=== PATIENT | male | born 1995 | race Caucasian/White ===

== ENCOUNTER 2019-03-19 08:58 | Inpatient (IN) | payer OTHER ==
[~2019-03-19] VITALS: Ht 182.9 cm; Wt 88.5 kg
--- NOTE | 2019-03-19 09:15 | NUR ---
Patient ANGELA from a hotel, overdose on heroin, on room air, breathing evenly and unlabored. Tachy on the monitor 120HR, connected to the monitor and pulse ox. Kept comfortable, will continue to monitor accordingly.
[2019-03-19 09:20] LABS: BASOPHILS # (AUTO) 0.1 /CMM (0.0-0.2); BASOPHILS % (AUTO) 0.2 % (0.0-2.0); HEMATOCRIT 44 % (39-51); HEMOGLOBIN 14.6 g/dL (13.5-17.5); LYMPHOCYTES # (AUTO) 1.7 /CMM (0.8-4.8); LYMPHOCYTES % (AUTO) 6.3 % (20.0-44.0); MEAN CORPUSCULAR HGB CONC 33 g/dl (31.0-36.0); MEAN CORPUSCULAR VOLUME 94 fL (80-96); MONOCYTES # (AUTO) 2.8 /CMM (0.1-1.30); MONOCYTES % (AUTO) 10.6 % (2.0-12.0); NEUTROPHILS # (AUTO) 21.7 /CMM (1.8-8.9); NEUTROPHILS % (AUTO) 82.9 % (43.0-81.0); PLATELET COUNT (AUTO) 257 /CMM (150-450); RED BLOOD CELL COUNT(AUTO) 4.67 MIL/uL (4.5-6.0); WHITE BLOOD COUNT (AUTO) 26.2 K/uL (4.3-11.0)
--- NOTE | 2019-03-19 09:22 | NUR ---
urine collected and sent to lab.
[2019-03-19 09:24] LABS: BILIRUBIN,URINE Negative (NEGATIVE); BLOOD, URINE Large Ery/uL (NEGATIVE); COLOR,URINE Yellow (YELLOW); KETONES,URINE Negative (NEGATIVE); LEUKOCYTE ESTERASE ,URINE Negative (NEGATIVE); NITRITE, URINE Negative (NEGATIVE); PH,URINE 6.5 (5.0-8.0); PROTEIN,URINE Trace mg/dl (NEGATIVE); UGLUCOSE Negative (NEGATIVE); UROBILINOGEN,URINE 0.2 EU/dL (0.2)
[2019-03-19 09:25] LABS: APPEARANCE,URINE Hazy (CLEAR)
--- NOTE | 2019-03-19 09:25 | NUR ---
sitter at bedside for constant monitoring.
[2019-03-19 09:26] LABS: CALCIUM, SERUM 8.6 mg/dL (8.5-10.1); CARBON DIOXIDE 22 mmol/L (21-32); CHLORIDE 102 mmol/L (98-107); CREATININE 2.6 mg/dL (0.6-1.3); GLUCOSE 91 mg/dL (74-106); POTASSIUM 5.1 mmol/L (3.5-5.1); SODIUM SERUM 138 mmol/L (136-145); UREA NITROGEN, BLOOD 22 mg/dL (7-18)
[2019-03-19 09:32] LABS: BACTERIA,URINE Rare /HPF (None Seen); RBC,URINE 50-80 /HPF (0-2); SQUAMOUS EPITHELIAL CELL,UR Few /HPF (None Seen); WBC,URINE 0-3 /HPF (0-3)
[2019-03-19 09:32] LABS: ACETAMINOPHEN 0 ug/ml (10-30); ALANINE AMINOTRANSFERASE 364 U/L (12-78); ALBUMIN 4.4 g/dL (3.4-5.0); ALCOHOL, BLOOD < 3 mg/dL (0-0); ALKALINE PHOSPHATASE 58 U/L (46-116); ASPARTATE AMINOTRANSFERASE 339 U/L (15-37); BILIRUBIN,DIRECT 0.1 mg/dL (0.0-0.2); BILIRUBIN,TOTAL 0.1 mg/dL (0.2-1.0); SALICYLATE 2.8 mg/dL (2.8-20.0); TOTAL PROTEIN, SERUM 7.4 g/dL (6.4-8.2)
--- NOTE | 2019-03-19 09:42 | NUR ---
CHIN WILHELM (FATHER) [phone]
[2019-03-19] MEDS ORDERED: IV NS 0.9% 1,000 ML IV ONE (10:00)
--- NOTE | 2019-03-19 10:12 | NUR ---
WHEELED OUT VIA RNEY FOR CT SCAN
--- NOTE | 2019-03-19 10:49 | NUR ---
called POISON CONTROL : case presented to [facility] (poison control) adviced to start Mucomyst drip repeat liver enzymes at 12 pm- notified OLIVIA Chan
[2019-03-19] MEDS ORDERED: IV NS 0.9% 1,000 ML BAG IV ONE (11:00)
[2019-03-19] MEDS ORDERED: IV NS 0.9% 1,000 ML IV PRN (11:17)
--- NOTE | 2019-03-19 11:21 | NUR ---
Report given to Cira ESCALANTE for luis daniel.
[2019-03-19] MEDS ORDERED: ONDANSETRON HCL/PF 4 MG/2 ML VIAL IVP PRN (11:30)
[2019-03-19] MEDS ORDERED: CEFTRIAXONE 1GM BAG (ER ONLY) 1 GM/50 ML PIGGYBACK IV ONE (11:30)
[2019-03-19] MEDS ORDERED: Z GUARD REMEDY 2 OZ OINT TP PRN (11:30)
[2019-03-19] MEDS ORDERED: MAG HYDROX/AL HYDROX/SIMETH 30 ML UDC PO PRN (11:30)
[2019-03-19] MEDS ORDERED: MAGNESIUM HYDROXIDE 30 ML UDC PO PRN (11:30)
[2019-03-19] MEDS ORDERED: CEFTRIAXONE 1GM BAG (ER ONLY) 50 ML IV ONE (11:31)
[2019-03-19] MEDS ORDERED: D5W IV ONE ×3 (12:00→18:00)
[2019-03-19] MEDS ORDERED: ACETYLCYSTEINE IV ONE ×3 (12:00→18:00)
[2019-03-19 12:12] LABS: ALBUMIN 3.9 g/dL (3.4-5.0); BILIRUBIN,DIRECT 0.1 mg/dL (0.0-0.2); BILIRUBIN,TOTAL 0.3 mg/dL (0.2-1.0); TOTAL PROTEIN, SERUM 6.8 g/dL (6.4-8.2)
--- NOTE | 2019-03-19 12:13 | NUR ---
wheeled patient via gurney accompanied by EMT and RN in no apparent distress. Lolita RN and Cira RN at bedside to assume care.
--- NOTE | 2019-03-19 12:15 | NUR ---
MS RN OPENING NOTES RECEIVED RESIDENT VIA [place] ACCOMPANIED BY 2 NURSES FROM EMERGENCY DEPARTMENT, ASLEEP BUT AROUSABLE AND OPENS HIS EYES WHEN CALLING HIS NAME, ABLE TO FOLLOW SIMPLE INSTRUCTIONS. AFEBRILE WITH NO S/S OF DISTRESS OBSERVED. LEFT HAND IV LINE G20 INTACT AND INFUSING WELL WITH NO BLEEDING AND S/S OF INFILTRATION/INFECTION SEEN. BREATHING REGULAR AND UNLABORED WITH CLEAR BREATH SOUNDS HEARD ON BOTH LUNG DAMON. ACTIVE BOWEL SOUNDS NOTED ON ALL QUADRANTS WITH SOFT ABDOMEN AND BLADDER. ABLE TO MOVE ALL EXTREMITIES WITH NO S/S OF PAIN/DISCOMFORT NOTED. ASSESSED VITAL SIGNS AND NOTED LOW BLOOD PRESSURE, IV BOLUS 500CC OF NORMAL SALINE GIVEN ORDERED. BODY ASSESSMENT DONE, SEEN WITH CHIN REDNESS WITH MINIMAL SWELLING, RIGHT ELBOW ABRASION AND LEFT KNEE REDNESS, PHOTO TAKEN AND FILED ON CHART. KEPT CLEAN AND DRY, REPOSITIONED EVERY 2HRS AND NEEDED. BED LOW AND LOCKED. CONTINUOUSLY MONITORED.
--- NOTE | 2019-03-19 12:20 | NUR ---
MS RN NOTES PATIENT NOTED WITH BP OF 91/49 PULSE OF 97 RESPIRATION OF 18, O2 SATURATION 95%. PATIENT OPENS EYES WHEN NAME IS CALLED. NO SIGNS OR DISTRESS NOTED. FLUIDS STARTED NS AT 125ML/HR. PUJA DAVID PAGED WAITING FOR CALL BACK. WILL CONTINUE TO MONITOR. PATIENTS FATHER AT BEDSIDE.
--- NOTE | 2019-03-19 12:25 | NUR ---
MS RN NOTES JOE DAVID RETURNED CALL WITH ORDERS FOR BOLUS OF NS WIDE OPEN. NOTED AND CARRIED OUT.
[2019-03-19 12:30] VITALS: BP 104/58
--- NOTE | 2019-03-19 12:45 | NUR ---
MS RN NOTES BP CHECKED AFTER BOLUS: 104/58 HEART RATE 97 O2 SATURATION AT 95% PATIENT RESTING IN BED. OPENS EYES WHEN NAME CALLED. WILL CONTINUE TO MONITOR.
[2019-03-19] MEDS ORDERED: IV NS 0.9% 500 ML BAG IV ONE (13:00)
[2019-03-19] MEDS: PIPERACILLIN /TAZOBACTAM 2.25 G in IV D5W 50 ML IV SCH ×2 (13:32→17:58)
--- NOTE | 2019-03-19 14:00 | NUR ---
MS RN NOTES NOTES PATIENTS PROCALCITONIN LEVEL 4.61 PUJA DAVID NOTIFIED ORDERS TO CONTINUE CURRENT TREATMENT WITH IV HYDRATION AND IV ATB. WILL CONTINUE TO MONITOR.
[2019-03-19] MEDS: IV NS 0.9% 1,000 ML IV PRN ×2 (15:04→20:24)
[2019-03-19] MEDS: FAMOTIDINE/PF INJ 20 MG/2 ML VIAL IV SCH (17:24)
--- NOTE | 2019-03-19 18:50 | NUR ---
MS RN CLOSING NOTES RESIDENT IN BED ALERT, AROUSABLE BY NAME AND ABLE TO FOLLOW SIMPLE INSTRUCTIONS, AFEBRILE WITH NO S/S OF DISTRESS OBSERVED. IV LINES ON LEFT HAND AND LEFT ANTECUBITAL BOTH G20 PATENT AND INTACT, INFUSING WELL WITH NO BLEEDING AND S/S OF INFILTRATION/INFECTION NOTED. NO S/S OF PAIN/DISCOMFORT SEEN. MAINTAINED ON NOTHING BY MOUTH, IV MEDICATIONS GIVEN ORDERED. KEPT CLEAN AND DRY, ABLE TO ASSIST WITH REPOSITIONING EVERY 2HRS AND NEEDED. WILL ENDORSE TO NOC SHIFT FOR CONTINUITY OF CARE.
--- NOTE | 2019-03-19 19:27 | NUR ---
RN MS OPENING NOTES RECEIVED PT IN BED SLEEPING, AROUSED TO NAME CALL, OPENS EYES, NODS AND GOES BACK TO SLEEP. BREATHING EVEN AND UNLABORED ON ROOM AIR. IN NO APPARENT PAIN OR DISCOMFORT AT THIS TIME, IV ACCESS ON THE L HAND G20 AND LAC G20 WITH NS @150ML/HR. BED IN LOWEST LOCKED POSITION, CALL LIGHT WITHIN REACH AT ALL TIMES. WILL CONTINUE TO MONITOR FREQUENTLY.
[2019-03-19 20:00] VITALS: BP 105/70
[2019-03-20] MEDS: PIPERACILLIN /TAZOBACTAM 2.25 G in IV D5W 50 ML IV SCH ×5 (00:08→23:29)
[2019-03-20] MEDS: IV NS 0.9% 1,000 ML IV PRN ×3 (03:47→23:29)
--- NOTE | 2019-03-20 06:45 | NUR ---
RN MS CLOSING NOTES PT REMAINS IN BED SLEEPING, AROUSED TO NAME CALL, VERBALLY RESPONSIVE, SAYS HES STILL SLEEPY. BREATHING EVEN AND UNLABORED ON ROOM AIR. IN NO APPARENT PAIN OR DISCOMFORT AT THIS TIME, IV ACCESS ON THE L HAND G20 AND LAC G20 WITH NS @150ML/HR. BED IN LOWEST LOCKED POSITION, CALL LIGHT WITHIN REACH AT ALL TIMES. WILL ENDORSE TO DAY NURSE FOR VICKIE
[2019-03-20 06:47] LABS: BASOPHILS % (AUTO) 0.3 % (0.0-2.0); EOSINOPHILS % (AUTO) 0.1 % (0.0-6.0); HEMATOCRIT 39 % (39-51); HEMOGLOBIN 13.1 g/dL (13.5-17.5); LYMPHOCYTES # (AUTO) 1.6 /CMM (0.8-4.8); LYMPHOCYTES % (AUTO) 13.5 % (20.0-44.0); MEAN CORPUSCULAR HGB CONC 34 g/dl (31.0-36.0); MEAN CORPUSCULAR VOLUME 93 fL (80-96); MONOCYTES # (AUTO) 0.9 /CMM (0.1-1.30); MONOCYTES % (AUTO) 7.7 % (2.0-12.0); NEUTROPHILS # (AUTO) 9.2 /CMM (1.8-8.9); NEUTROPHILS % (AUTO) 78.4 % (43.0-81.0); PLATELET COUNT (AUTO) 165 /CMM (150-450); WHITE BLOOD COUNT (AUTO) 11.8 K/uL (4.3-11.0)
[2019-03-20 07:01] LABS: CALCIUM, SERUM 7.2 mg/dL (8.5-10.1); CREATININE 1.2 mg/dL (0.6-1.3); MAGNESIUM 1.7 mg/dL (1.8-2.4); PHOSPHORUS 2.5 mg/dL (2.5-4.9); POTASSIUM 3.6 mmol/L (3.5-5.1)
[2019-03-20 07:09] LABS: THYROID STIMULATING HORMONE 2.265 uIU/mL (0.358-3.74)
[2019-03-20 07:10] LABS: ALBUMIN 2.9 g/dL (3.4-5.0); BILIRUBIN,DIRECT 0.1 mg/dL (0.0-0.2); BILIRUBIN,TOTAL 0.2 mg/dL (0.2-1.0); TOTAL PROTEIN, SERUM 5.6 g/dL (6.4-8.2)
--- NOTE | 2019-03-20 07:49 | NUR ---
MS RN OPENING NOTES PATIENT IN BED ALERT X2, AFEBRILE WITH NO S/S OF DISTRESS OBSERVED. BREATHING REGULAR AND UNLABORED WITH CLEAR BREATH SOUNDS ON BOTH LUNG DAMON. ACTIVE BOWEL SOUNDS HEARD ON ALL QUADRANTS WITH SOFT ABDOMEN AND BLADDER. IV LINES ON LEFT HAND AND LEFT ANTECUBITAL BOTH G20 INTACT AND INFUSING WELL WITH NO BLEEDING OR S/S OF INFILTRATION/INFECTION SEEN. NO COMPLAINTS OF PAIN/DISCOMFORT REPORTED OF THE TIME. MAINTAINED ON NOTHING BY MOUTH UNTIL FULLY AWAKE. CONTINUOUSLY MONITORED
[2019-03-20 08:00] VITALS: BP 115/82
[2019-03-20] MEDS: FAMOTIDINE/PF INJ 20 MG/2 ML VIAL IV SCH ×2 (08:57→17:00)
--- NOTE | 2019-03-20 10:33 | NUR ---
MS RN NOTES SPOKE TO JEREMY FROM POISON CONTROL DISCUSSED REGARDING PATIENTS LATEST LIVER ENZYME RESULTS, SUGGESTED TO HAVE ANOTHER LIVER FUNCTION TEST 1HR BEFORE THE ON-GOING MUCOMYST IV IS FINISHED. NOTIFIED INVESTIGATOR INTERNAL AFFA[facility] JEREMY FLOREZ AND SAID TO FOLLOW WHAT THE POISON CONTROL SUGGESTED. PATIENT AND FAMILY AT BEDSIDE MADE AWARE.
--- NOTE | 2019-03-20 11:29 | NUR ---
Social service consult requested by for drug abuse. Pt. is a 23 year old male who was admitted to [facility] for overdose on Gabapentin. SW met with pt. and his father bedside. Pt. is alert and oriented x 3. Pt. appears to be lethargic at times. Pt. has been living in [facility] from [place] since 2014 however, recently moved back to [place]. Both pt. and father had flown from [place] to clean up pt's apartment. Pt. was having anxiety regarding his nursing home girlfriend Marta and decided to take Gabapentin. However, pt. continued to take Gabapentin as his anxiety was not subsiding. Pt. denies intentional overdose. Pt. has a psychiatric diagnosis of Depression and Anxiety and takes Zoloft and Gabapentin as needed. Pt. is intended to fly out to [place] this evening with his father if medically cleared. Pt. is awaiting a psychiatric consultation at this time. No other social service needs are requested at this time. SW is available, if needed.
[2019-03-20] MEDS: Magnesium 1GM/D5W 100ML PREMIX 100 ML IV SCH ×2 (12:49→14:46)
[2019-03-20 13:03] LABS: BILIRUBIN,DIRECT 0.1 mg/dL (0.0-0.2); BILIRUBIN,TOTAL 0.2 mg/dL (0.2-1.0); TOTAL PROTEIN, SERUM 5.8 g/dL (6.4-8.2)
[2019-03-20 16:00] VITALS: BP 120/69
--- NOTE | 2019-03-20 17:10 | NUR ---
MS RN NOTES POISON CONTROL CALLED BACK, SPOKE TO JEREMY REGARDING THE RESULT OF THE REPEAT LIVER FUNCTION TEST. REPORTED THE LATEST ALT AND AST RESULT AND PER HIM IT MIGHT NOT BE THE ACETAMINOPHEN OVERDOSE ANYMORE, PER HIM THE PATIENT MIGHT HAVE AN INFECTION AND HE SAID THEY'RE CLOSING HIS CASE FOR POISON CONTROL. OLIVIA FLOREZ MADE AWARE. WILL ENDORSE TO NOC SHIFT.
--- NOTE | 2019-03-20 18:31 | NUR ---
MS RN CLOSING NOTES RESIDENT IN BED ALERT AND ORIENTED X4, ABLE TO FOLLOW INSTRUCTIONS, AFEBRILE WITH NO S/S OF DISTRESS OBSERVED. IV LINES ON LEFT HAND AND LEFT ANTECUBITAL BOTH G20 PATENT AND INTACT, INFUSING WELL WITH NO BLEEDING AND S/S OF INFILTRATION/INFECTION NOTED. REGULAR DIET TOLERATING WELL WITH NO EPISODE OF NAUSEA/VOMITING NOTED, IV MEDICATIONS GIVEN ORDERED. KEPT CLEAN AND DRY, ABLE TO MOVE FREELY IN BED WITH NO COMPLAINTS OF PAIN/DISCOMFORT. WILL ENDORSE TO NOC SHIFT FOR CONTINUITY OF CARE.
--- NOTE | 2019-03-20 19:20 | NUR ---
MS/RN OPENING NOTES PT RECEIVED ASLEEP, RESPONSIVE TO NAME. A/OX3. ON ROOM AIR, BREATHING EVEN AND UNLABORED. DENIES SOB AND PAIN AT THIS TIME. DENIES SUICIDAL IDEATION. IV TO LAC PATENT AND INTACT RUNNING IVF ORDERED. HOB ELEVATED. NO NEEDS EXPRESSED AT THIS TIME. PT AWARE THAT HE WILL BE GOING DOWN TO [facility]. BED IN LOW/LOCKED POSITION WITH CALL LIGHT IN REACH. BILAT. UPPER SIDE RAILS IN PLACE. WILL CONTINUE TO MONITOR
[2019-03-20 20:00] VITALS: BP 123/67
--- NOTE | 2019-03-20 20:55 | NUR ---
MS/RN NOTES PT MOVED FROM ROOM 326-1 TO 200 WITH ALL BELONGINGS IN STABLE CONDITION. REORIENTED PT TO ROOM AND CALL LIGHT.
--- NOTE | 2019-03-21 02:13 | NUR ---
MS/RN NOTES RECEIVED CRITICAL LAB VALUE CK-MB 105.[address] ANDONIAN[address] PAPPAS WITH ORDERS FOR REPEAT CK-MB IN 6 HOURS (0800), CPK WITH AM LABS AND CONTINUE IVF. ORDERS READBACK FOR VERIFICATION. NO ADDITIONAL ORDERS AT THIS TIME.
[2019-03-21] MEDS: PIPERACILLIN /TAZOBACTAM 2.25 G in IV D5W 50 ML IV SCH ×2 (05:55→12:00)
[2019-03-21] MEDS: IV NS 0.9% 1,000 ML IV PRN (06:44)
--- NOTE | 2019-03-21 06:58 | NUR ---
MS/RN CLOSING NOTES PT ASLEEP, RESPONSIVE TO NAME. A/OX3. WITHDRAWN, DENIES SUICIDAL IDEATION. ON ROOM AIR, BREATHING EVEN AND UNLABORED. DENIES SOB AND PAIN AT THIS TIME. IV TO LAC PATENT AND INTACT RUNNING IVF ORDERED. NO SIGNIFICANT CHANGES OVERNIGHT. SLEPT WELL DURING SHIFT. NO NEEDS EXPRESSED AT THIS TIME. BED IN LOW/LOCKED POSITION WITH CALL LIGHT IN REACH. BILAT. UPPER SIDE RAILS IN PLACE WITH HOB ELEVATED. WILL ENDORSE TO ONCOMING SHIFT VICKIE.
--- NOTE | 2019-03-21 07:50 | NUR ---
MS RN NOTES PATIENT RECEIVED RESTING INSIDE ROOM. SLEEPING, EASILY AROUSABLE THROUGH VERBAL AND TACTILE STIMULI. A/O X 3, VERBALLY RESPONSIVE. NO ACUTE DISTRESS. DENIES ANY PAIN OR DISCOMFORT. PATIENT WITHDRAWN, DENIES SI/HI. IVF RUNNING AND PATIENT TOLERATING WELL. SAFETY PRECAUTIONS IN PLACE. WILL CONTINUE TO MONITOR. BED LOCKED AND IN LOW POSITION. BILATERAL UPPER SIDE RAILS UP AND LOCKED. CALL LIGHT WITHIN EASY REACH
[2019-03-21 08:00] VITALS: BP 108/71
[2019-03-21 08:21] LABS: BASOPHILS % (AUTO) 0.4 % (0.0-2.0); EOSINOPHILS % (AUTO) 0.3 % (0.0-6.0); HEMATOCRIT 40 % (39-51); HEMOGLOBIN 13.2 g/dL (13.5-17.5); LYMPHOCYTES # (AUTO) 1.4 /CMM (0.8-4.8); LYMPHOCYTES % (AUTO) 15.2 % (20.0-44.0); MEAN CORPUSCULAR HGB CONC 33 g/dl (31.0-36.0); MEAN CORPUSCULAR VOLUME 93 fL (80-96); MONOCYTES # (AUTO) 0.7 /CMM (0.1-1.30); MONOCYTES % (AUTO) 8.1 % (2.0-12.0); NEUTROPHILS # (AUTO) 6.8 /CMM (1.8-8.9); PLATELET COUNT (AUTO) 169 /CMM (150-450); RED BLOOD CELL COUNT(AUTO) 4.27 MIL/uL (4.5-6.0)
[2019-03-21] MEDS: FAMOTIDINE/PF INJ 20 MG/2 ML VIAL IV SCH (08:47)
[2019-03-21] MEDS ORDERED: SERTRALINE HCL 50 MG TABLET PO SCH (09:00)
[2019-03-21 09:09] LABS: BILIRUBIN,TOTAL 0.5 mg/dL (0.2-1.0); CALCIUM, SERUM 8.1 mg/dL (8.5-10.1); CREATININE 1.2 mg/dL (0.6-1.3); MAGNESIUM 1.8 mg/dL (1.8-2.4); POTASSIUM 3.9 mmol/L (3.5-5.1); TOTAL PROTEIN, SERUM 5.6 g/dL (6.4-8.2)
--- NOTE | 2019-03-21 09:42 | NUR ---
MS RN NOTES PLACED CALL TO POISON CONTROL ([phone]) AND SPOKE WITH ALEXA. VERBALIZED THAT THEY WILL NO LONGER FOLLOW AND CLOSE CASE REGARDING PATIENT. JEREMY FLOREZ DNP MADE AWARE. WILL CONTINUE TO MONITOR
--- NOTE | 2019-03-21 11:14 | NUR ---
MS RN NOTES PATIENT AND MOTHER AT BEDSIDE SEEN AND EXAMINED BY JEREMY FLOREZ. PATIENT CLEARED FOR DISCHARGE HOME. WILL CONTINUE TO MONITOR
--- NOTE | 2019-03-21 12:55 | NUR ---
MS RN NOTES PATIENT FOR DISCHARGE TODAY. DISCHARGE INSTRUCTIONS AND EDUCATION PROVIDED AND VERBALIZED UNDERSTANDING. IV REMOVED, TIP INTACT, PRESSURE DRESSING PLACED ON SITE. NO NEW SKIN BREAKDOWN NOTED. ALL BELONGINGS COMPLETE ON DISCHARGE, NO REPORT OF MISSING INVENTORY. PATIENT LEFT UNIT AMBULATORY. ACCOMPANIED BY NURSING STAFF TO PARKING LOT. LEFT HOSPITAL PREMISES WITH MOTHER VIA PRIVATE CAR. MD AWARE OF DISCHARGE
== END 2019-03-21 12:50 | disposition home or self-care (01) | DRG 917 ==
LOC: ER 09:06 → MED 11:52 → MEDSG2 03-20 20:53
PROVIDERS: ADMIT Nurse Practitioner Acute Care; ATTEND Nurse Practitioner Acute Care
DX: T42.6X1A Poisoning by other antiepileptic and sedative-hypnotic drugs, accidental (unintentional), initial encounter (principal); G92 Toxic encephalopathy; N17.0 Acute kidney failure with tubular necrosis; M62.82 Rhabdomyolysis; F11.20 Opioid dependence, uncomplicated; Y92.59 Other trade areas as the place of occurrence of the external cause; F32.9 Major depressive disorder, single episode, unspecified; F41.9 Anxiety disorder, unspecified; D72.829 Elevated white blood cell count, unspecified; R74.0 Nonspecific elevation of levels of transaminase and lactic acid dehydrogenase [LDH]; E83.42 Hypomagnesemia; E88.09 Other disorders of plasma-protein metabolism, not elsewhere classified; F10.10 Alcohol abuse, uncomplicated; Z87.891 Personal history of nicotine dependence
CPT/HCPCS: 36415; 70450-TC; 71045-TC; 80048-TC; 80053-TC; 80061-TC; 80076-TC; 80305; 81000-TC; 82550-TC; 83735-TC; 84100-TC; 84443-TC; 85025-TC; 87040-TC; 87081-TC; 97116-TC; 97530-TC; G0378; G0480; J0132; J0696; J2543; J3475; J3490; J7030; J7040; J7050; J7060; J7070